=== PATIENT | male | born 1945 | race Asian ===

== ENCOUNTER 2021-05-11 12:16 | Inpatient (IN) | payer OTHER, MEDICAID, SELFPAY ==
[~2021-05-11] VITALS: Ht 167.6 cm; Wt 81.6 kg
[2021-05-11 12:42] VITALS: BP_SYST 114
[2021-05-11 14:24] LABS: BASOPHILS % (AUTO) 0.1 % (0.0-2.0); EOSINOPHILS % (AUTO) 0.4 % (0.0-4.0); HEMATOCRIT 37.9 % (36-54); HEMOGLOBIN 12.8 g/dL (14.0-18.0); LYMPHOCYTES # (AUTO) 0.4 K/uL (1.0-5.5); LYMPHOCYTES % (AUTO) 6.7 % (20.5-51.5); MEAN CORPUSCULAR HEMOGLOBIN 30 pg (27-31); MEAN CORPUSCULAR HGB CONC 34 % (32-36); MEAN CORPUSCULAR VOLUME 88 fL (79.0-98.0); MONOCYTES # (AUTO) 0.4 K/uL (0.0-1.0); MONOCYTES % (AUTO) 7.3 % (1.7-9.3); NEUTROPHILS # (AUTO) 4.8 K/uL (1.8-7.7); NEUTROPHILS % (AUTO) 85.5 % (40.0-70.0); PLATELET COUNT (AUTO) 169 K/uL (130-430); RED BLOOD CELL COUNT(AUTO) 4.33 MIL/uL (4.2-6.2); RED CELL DISTRIBUTION WIDTH 13.8 % (9.0-15.0); WHITE BLOOD COUNT (AUTO) 5.6 K/uL (4.8-10.8)
[2021-05-11 14:42] LABS: ANION GAP 11 (5-15); CALCIUM 8.5 mg/dL (8.4-11.0); CHLORIDE 103 mmol/L (98-107); CREATININE 2.47 mg/dL (0.55-1.30); GLUCOSE 133 mg/dL (70-99); POTASSIUM 4.4 mmol/L (3.5-5.1); SODIUM SERUM 138 mmol/L (136-145); UREA NITROGEN, BLOOD 44 mg/dL (8-21)
[2021-05-11 14:50] LABS: ALANINE AMINOTRANSFERASE 171 U/L (12-78); ALBUMIN 2.7 g/dL (3.4-4.8); ASPARTATE AMINOTRANSFERASE 227 U/L (10-37)
[2021-05-11] MEDS ORDERED: NACL 0.9% 1,000 ML IV ONE (16:00)
[2021-05-11] MEDS ORDERED: ASPIRIN 325 MG TABLET PO ONE (16:00)
[2021-05-11] MEDS ORDERED: LEVO25CA4 PO (18:29)
[2021-05-11] MEDS ORDERED: EZET-55 PO (18:29)
[2021-05-11] MEDS ORDERED: NIFE90TA48 PO (18:29)
[2021-05-11] MEDS ORDERED: NATE120T PO (18:29)
[2021-05-11] MEDS ORDERED: LINA5TAB2 PO (18:29)
[2021-05-11] MEDS ORDERED: LISI20TA PO (18:29)
[2021-05-11 22:02] VITALS: BP_SYST 141
[2021-05-11] MEDS ORDERED: HYDROcodone/ACETAMIN 5-325 MG TAB (NORCO/ VICODIN) PO PRN (22:15)
[2021-05-11] MEDS ORDERED: ONDANSETRON HCL 4 MG/2 ML VIAL IVP PRN (22:15)
[2021-05-11] MEDS ORDERED: HYDROcodone/ACETAMIN 10-325 MG TAB PO PRN (22:15)
[2021-05-11] MEDS ORDERED: NALOXONE HCL 0.4 MG/ML AMP (NARCAN) IVP PRN ×2 (22:15)
[2021-05-11] MEDS ORDERED: ACETAMINOPHEN 325 MG TABLET PO PRN (22:15)
[2021-05-11] MEDS: NACL 0.9% 1,000 ML IV SCH (23:14)
[2021-05-12] MEDS: NORMAL SALINE 5 ML DISP.SYRIN IVF SCH ×3 (05:16→22:00)
[2021-05-12] MEDS ORDERED: NORMAL SALINE 5 ML DISP.SYRIN IVF SCH (06:00)
[2021-05-12 08:00] VITALS: BP_SYST 142
[2021-05-12] MEDS: NACL 0.9% 1,000 ML IV SCH ×2 (08:15→18:15)
[2021-05-12] MEDS: NATEGLINIDE 120 MG TABLET PO SCH (09:01)
[2021-05-12] MEDS: lisinopriL 20 MG TABLET PO SCH (09:02)
[2021-05-12] MEDS ORDERED: ENOXAPARIN SODIUM 30 MG/0.3 ML SYRINGE SUBCUT ONE (10:00)
[2021-05-12] MEDS: NIFEDIPINE 90 MG TABLET.SA (PROCARDIA XL 90 MG) PO SCH (10:50)
[2021-05-12] MEDS: LEVOTHYROXINE SODIUM 0.025 MG TABLET PO SCH (10:51)
[2021-05-12] MEDS: AZITHROMYCIN 500 MG in NS 250 ML IV SCH (11:31)
[2021-05-12] MEDS: DECADRON 4 MG TABLET PO SCH (11:31)
[2021-05-12 12:00] VITALS: BP_SYST 141
[2021-05-12 16:03] VITALS: BP_SYST 138
[2021-05-12 20:31] VITALS: BP_SYST 128
[2021-05-12] MEDS: SIMVASTATIN 10 MG TABLET PO SCH (20:43)
[2021-05-12] MEDS: EZETIMIBE 10 MG TABLET PO SCH (20:43)
[2021-05-12] MEDS: INSULIN REGULAR, HUMAN 100 UNITS/ML, 10 ML VIAL (humuLIN R) SUBCUT PRN (20:46)
[2021-05-12 22:19] LABS: BASOPHILS % (AUTO) 0.1 % (0.0-2.0); EOSINOPHILS % (AUTO) 0.1 % (0.0-4.0); HEMOGLOBIN 12.1 g/dL (14.0-18.0); LYMPHOCYTES # (AUTO) 0.2 K/uL (1.0-5.5); LYMPHOCYTES % (AUTO) 5.8 % (20.5-51.5); MEAN CORPUSCULAR HEMOGLOBIN 29 pg (27-31); MEAN CORPUSCULAR HGB CONC 34 % (32-36); MEAN CORPUSCULAR VOLUME 88 fL (79.0-98.0); MONOCYTES # (AUTO) 0.1 K/uL (0.0-1.0); MONOCYTES % (AUTO) 2.1 % (1.7-9.3); NEUTROPHILS # (AUTO) 3.9 K/uL (1.8-7.7); NEUTROPHILS % (AUTO) 91.9 % (40.0-70.0); PLATELET COUNT (AUTO) 191 K/uL (130-430); RED BLOOD CELL COUNT(AUTO) 4.11 MIL/uL (4.2-6.2); RED CELL DISTRIBUTION WIDTH 13.4 % (9.0-15.0); WHITE BLOOD COUNT (AUTO) 4.3 K/uL (4.8-10.8)
[2021-05-12 23:07] LABS: C-REACTIVE PROTEIN QUANT 11.7 mg/dL (0-0.5)
[2021-05-12 23:25] LABS: ALANINE AMINOTRANSFERASE 124 U/L (12-78); ALBUMIN 2.2 g/dL (3.4-4.8); ANION GAP 12 (5-15); ASPARTATE AMINOTRANSFERASE 112 U/L (10-37); CHLORIDE 107 mmol/L (98-107); CREATININE 1.52 mg/dL (0.55-1.30); GLUCOSE 184 mg/dL (70-99); PHOSPHORUS 2.9 mg/dL (2.7-4.5); POTASSIUM 4.5 mmol/L (3.5-5.1); SODIUM SERUM 139 mmol/L (136-145); TOTAL BILIRUBIN 0.6 mg/dL (0.0-1.0); UREA NITROGEN, BLOOD 32 mg/dL (8-21)
[2021-05-12 23:58] LABS: CHOLESTEROL 136 mg/dL (<200); HDL CHOLESTEROL 41 mg/dL (>45); LDL CHOLESTEROL 78 mg/dL (<100); TRIGLYCERIDES 99 mg/dL (30-150)
[2021-05-13 00:26] VITALS: BP_SYST 125
[2021-05-13] MEDS: NACL 0.9% 1,000 ML IV SCH ×2 (04:59→18:29)
[2021-05-13] MEDS: NORMAL SALINE 5 ML DISP.SYRIN IVF SCH ×3 (05:08→22:10)
[2021-05-13] MEDS: INSULIN REGULAR, HUMAN 100 UNITS/ML, 10 ML VIAL (humuLIN R) SUBCUT PRN ×2 (05:10→22:16)
[2021-05-13 08:00] VITALS: BP_SYST 131
[2021-05-13] MEDS: LEVOTHYROXINE SODIUM 0.025 MG TABLET PO SCH (09:02)
[2021-05-13] MEDS: NIFEDIPINE 90 MG TABLET.SA (PROCARDIA XL 90 MG) PO SCH (09:02)
[2021-05-13] MEDS: lisinopriL 20 MG TABLET PO SCH (09:03)
[2021-05-13] MEDS: NATEGLINIDE 120 MG TABLET PO SCH (09:03)
[2021-05-13] MEDS: ENOXAPARIN SODIUM 30 MG/0.3 ML SYRINGE SUBCUT SCH (09:04)
[2021-05-13 09:16] LABS: ANION GAP 8 (5-15); CHLORIDE 109 mmol/L (98-107); CREATININE 1.43 mg/dL (0.55-1.30); GLUCOSE 142 mg/dL (70-99); POTASSIUM 3.7 mmol/L (3.5-5.1); SODIUM SERUM 139 mmol/L (136-145); UREA NITROGEN, BLOOD 33 mg/dL (8-21)
[2021-05-13] MEDS: AZITHROMYCIN 500 MG in NS 250 ML IV SCH (11:44)
[2021-05-13 12:00] VITALS: BP_SYST 128
[2021-05-13] MEDS: DECADRON 4 MG TABLET PO SCH (12:26)
[2021-05-13 16:00] VITALS: BP_SYST 137
[2021-05-13] MEDS: SIMVASTATIN 10 MG TABLET PO SCH (22:09)
[2021-05-13] MEDS: EZETIMIBE 10 MG TABLET PO SCH (22:10)
[2021-05-14 00:46] VITALS: BP_SYST 146
[2021-05-14 04:56] VITALS: BP_SYST 142
[2021-05-14] MEDS: NORMAL SALINE 5 ML DISP.SYRIN IVF SCH ×3 (05:51→22:20)
[2021-05-14 08:00] VITALS: BP_SYST 134
[2021-05-14] MEDS: NATEGLINIDE 120 MG TABLET PO SCH (09:00)
[2021-05-14] MEDS: lisinopriL 20 MG TABLET PO SCH (09:00)
[2021-05-14] MEDS: ENOXAPARIN SODIUM 30 MG/0.3 ML SYRINGE SUBCUT SCH (09:00)
[2021-05-14] MEDS: LEVOTHYROXINE SODIUM 0.025 MG TABLET PO SCH (09:00)
[2021-05-14] MEDS: NIFEDIPINE 90 MG TABLET.SA (PROCARDIA XL 90 MG) PO SCH (09:00)
[2021-05-14] MEDS: DECADRON 4 MG TABLET PO SCH (11:20)
[2021-05-14] MEDS: AZITHROMYCIN 500 MG in NS 250 ML IV SCH (11:20)
[2021-05-14 12:00] VITALS: BP_SYST 118
[2021-05-14] MEDS: NACL 0.9% 1,000 ML IV SCH (14:29)
[2021-05-14 16:00] VITALS: BP_SYST 134
[2021-05-14 20:25] VITALS: BP_SYST 145
[2021-05-14] MEDS: SIMVASTATIN 10 MG TABLET PO SCH (22:19)
[2021-05-14] MEDS: EZETIMIBE 10 MG TABLET PO SCH (22:19)
[2021-05-15 00:50] VITALS: BP_SYST 132
[2021-05-15] MEDS: NORMAL SALINE 5 ML DISP.SYRIN IVF SCH ×3 (06:00→22:00)
[2021-05-15 08:00] VITALS: BP_SYST 155
[2021-05-15] MEDS: NATEGLINIDE 120 MG TABLET PO SCH (09:00)
[2021-05-15] MEDS: lisinopriL 20 MG TABLET PO SCH (09:00)
[2021-05-15] MEDS: LEVOTHYROXINE SODIUM 0.025 MG TABLET PO SCH (09:00)
[2021-05-15] MEDS: NIFEDIPINE 90 MG TABLET.SA (PROCARDIA XL 90 MG) PO SCH (09:00)
[2021-05-15] MEDS: ENOXAPARIN SODIUM 30 MG/0.3 ML SYRINGE SUBCUT SCH (09:00)
[2021-05-15 10:08] LABS: BASOPHILS % (AUTO) 0.3 % (0.0-2.0); EOSINOPHILS # (AUTO) 0.2 K/uL (0.0-0.4); EOSINOPHILS % (AUTO) 2.8 % (0.0-4.0); HEMATOCRIT 34.5 % (36-54); HEMOGLOBIN 11.7 g/dL (14.0-18.0); LYMPHOCYTES # (AUTO) 0.5 K/uL (1.0-5.5); LYMPHOCYTES % (AUTO) 8.3 % (20.5-51.5); MEAN CORPUSCULAR HEMOGLOBIN 30 pg (27-31); MEAN CORPUSCULAR HGB CONC 34 % (32-36); MEAN CORPUSCULAR VOLUME 87 fL (79.0-98.0); MONOCYTES # (AUTO) 0.5 K/uL (0.0-1.0); MONOCYTES % (AUTO) 8.8 % (1.7-9.3); NEUTROPHILS # (AUTO) 4.8 K/uL (1.8-7.7); NEUTROPHILS % (AUTO) 79.8 % (40.0-70.0); PLATELET COUNT (AUTO) 227 K/uL (130-430); RED BLOOD CELL COUNT(AUTO) 3.96 MIL/uL (4.2-6.2); RED CELL DISTRIBUTION WIDTH 13.1 % (9.0-15.0)
[2021-05-15 10:35] LABS: ALANINE AMINOTRANSFERASE 108 U/L (12-78); ALBUMIN 2.1 g/dL (3.4-4.8); ANION GAP 10 (5-15); ASPARTATE AMINOTRANSFERASE 69 U/L (10-37); CALCIUM 8.1 mg/dL (8.4-11.0); CHLORIDE 106 mmol/L (98-107); CREATININE 1.39 mg/dL (0.55-1.30); GLUCOSE 103 mg/dL (70-99); POTASSIUM 3.5 mmol/L (3.5-5.1); SODIUM SERUM 140 mmol/L (136-145); TOTAL BILIRUBIN 0.3 mg/dL (0.0-1.0); UREA NITROGEN, BLOOD 29 mg/dL (8-21)
[2021-05-15 10:44] LABS: C-REACTIVE PROTEIN QUANT 2.8 mg/dL (0-0.5)
[2021-05-15] MEDS: NACL 0.9% 1,000 ML IV SCH (10:52)
[2021-05-15] MEDS: DECADRON 4 MG TABLET PO SCH (10:52)
[2021-05-15] MEDS: AZITHROMYCIN 500 MG in NS 250 ML IV SCH (10:52)
[2021-05-15 12:00] VITALS: BP_SYST 135
[2021-05-15 16:00] VITALS: BP_SYST 131
[2021-05-15] MEDS: SIMVASTATIN 10 MG TABLET PO SCH (21:00)
[2021-05-15] MEDS: EZETIMIBE 10 MG TABLET PO SCH (21:00)
[2021-05-16] MEDS: INSULIN REGULAR, HUMAN 100 UNITS/ML, 10 ML VIAL (humuLIN R) SUBCUT PRN (00:32)
[2021-05-16 01:52] VITALS: BP_SYST 122
[2021-05-16 04:00] VITALS: BP_SYST 140
[2021-05-16] MEDS: NORMAL SALINE 5 ML DISP.SYRIN IVF SCH (06:22)
[2021-05-16] MEDS: NACL 0.9% 1,000 ML IV SCH (06:23)
[2021-05-16 08:00] VITALS: BP_SYST 140
[2021-05-16] MEDS: NATEGLINIDE 120 MG TABLET PO SCH (09:00)
[2021-05-16] MEDS: NIFEDIPINE 90 MG TABLET.SA (PROCARDIA XL 90 MG) PO SCH (09:00)
[2021-05-16] MEDS: LEVOTHYROXINE SODIUM 0.025 MG TABLET PO SCH (09:00)
[2021-05-16] MEDS: lisinopriL 20 MG TABLET PO SCH (09:00)
[2021-05-16] MEDS: ENOXAPARIN SODIUM 30 MG/0.3 ML SYRINGE SUBCUT SCH (09:00)
[2021-05-16] MEDS: AZITHROMYCIN 500 MG in NS 250 ML IV SCH (10:45)
[2021-05-16] MEDS: DECADRON 4 MG TABLET PO SCH (10:45)
[2021-05-16 12:00] VITALS: BP_SYST 129
[2021-05-16] MEDS ORDERED: DEC1 PO (12:29)
[2021-05-16] MEDS ORDERED: LEVO500T90 PO (12:29)
[2021-05-16 13:46] VITALS: BP_SYST 129
== END 2021-05-16 14:25 | disposition home or self-care (01) | DRG 871 ==
LOC: SED 12:16 → STU 19:20
PROVIDERS: ADMIT Internal Medicine Hospice and Palliative Medicine; ATTEND Internal Medicine Hospice and Palliative Medicine
PROC: XW033E5 Introduction of Remdesivir Anti-infective into Peripheral Vein, Percutaneous Approach, New Technology Group 5 (ICD-10-PCS; principal; 2021-05-12)
DX: A41.9 Sepsis, unspecified organism (principal); U07.1 COVID-19; J12.82 Pneumonia due to coronavirus disease 2019; J96.01 Acute respiratory failure with hypoxia; N17.0 Acute kidney failure with tubular necrosis; I21.A1 Myocardial infarction type 2; I10 Essential (primary) hypertension; E78.5 Hyperlipidemia, unspecified; E11.9 Type 2 diabetes mellitus without complications; D64.9 Anemia, unspecified; I70.0 Atherosclerosis of aorta; E03.9 Hypothyroidism, unspecified; Z86.73 Personal history of transient ischemic attack (TIA), and cerebral infarction without residual deficits
CPT/HCPCS: 36415; 71045; 76770; 80048; 80053; 80061; 82728; 82962; 83036; 83605; 83735; 83880; 84100; 84484; 85025; 85379; 86140; 87040; 93005; 93306; 96360; 99285; G0378; J0456; J0696; J1650; J1815; J7050; J7060; J8540